=== PATIENT | male | born 1960 | race Caucasian/White ===

== ENCOUNTER → 2020-03-07 07:56 | Outpatient (BNVA) | payer SELFPAY | PROVIDERS: PCP Family Medicine; Visit Provider Physician Assistant Medical ==

== ENCOUNTER → 2021-03-09 14:17 | Outpatient (BNVA) | payer SELFPAY | PROVIDERS: PCP Family Medicine; Visit Provider Physician Assistant | DX: Z02.79 Encounter for issue of other medical certificate (principal) ==

== ENCOUNTER → 2021-05-28 11:22 | Outpatient (BNVA) | payer OTHER, SELFPAY | PROVIDERS: PCP Family Medicine; Visit Provider Internal Medicine | DX: S86.111A Strain of other muscle(s) and tendon(s) of posterior muscle group at lower leg level, right leg, initial encounter (principal); W00.0XXA Fall on same level due to ice and snow, initial encounter | CPT/HCPCS: 99203 ==

== ENCOUNTER → 2021-05-30 10:46 | Outpatient (BNVA) | payer OTHER, SELFPAY | PROVIDERS: PCP Family Medicine; Visit Provider Physician Assistant Medical | DX: S76.311A Strain of muscle, fascia and tendon of the posterior muscle group at thigh level, right thigh, initial encounter (principal); W18.30XA Fall on same level, unspecified, initial encounter | CPT/HCPCS: 99213 ==

== ENCOUNTER → 2021-06-05 13:05 | Outpatient (BNVA) | payer OTHER, SELFPAY | PROVIDERS: PCP Family Medicine; Visit Provider Physician Assistant Medical | DX: S86.112A Strain of other muscle(s) and tendon(s) of posterior muscle group at lower leg level, left leg, initial encounter (principal); S80.12XA Contusion of left lower leg, initial encounter; W18.30XA Fall on same level, unspecified, initial encounter | CPT/HCPCS: 99213 ==

== ENCOUNTER 2021-06-18 18:58 | Outpatient (REF) | payer OTHER, SELFPAY ==
--- NOTE | ~2021-06-18 | MR_ITS ---
EXAMINATION: MRI FEMUR WITHOUT CONTRAST, LEFT CLINICAL INFORMATION: Posterior distal left thigh pain. Left thigh pulling injury following a slip and fall. Pain and weakness. COMPARISON: None TECHNIQUE: Multisequence MR imaging of the left femur was obtained without contrast on a high-field strength scanner. FINDINGS: BONE: No abnormal marrow signal. No stress reaction, fracture, or avascular necrosis. No concerning lytic or blastic osseous lesion. MUSCLES/TENDONS: There is a full-thickness tear of the proximal hamstring tendons with a resultant tendon gap measuring approximately 3.9 cm in craniocaudal dimension. There is fluid within the tendon gap as well as fluid extending distally along the myotendinous junction. There is edema extending distally into the semimembranosus, semitendinosus, and biceps femoris muscles, consistent with associated muscle strains. SOFT TISSUES: No abnormal soft tissue mass. MR/MR femur LT wo con IMPRESSION: Full-thickness tear of the proximal left hamstring tendons with a tendon gap measuring 3.9 cm in craniocaudal dimension. Fluid within the tendon gap as well as edema extending distally along the myotendinous junction. Associated strains of the semimembranosus, semitendinosus, and biceps femoris muscles.
== END 2021-06-18 18:59 | disposition home or self-care (01) ==
LOC: HO.MRI 18:58
PROVIDERS: Visit Provider Internal Medicine
DX: M79.652 Pain in left thigh (principal); S79.922D Unspecified injury of left thigh, subsequent encounter
CPT/HCPCS: 73718

== ENCOUNTER → 2021-06-20 15:46 | Outpatient (BNVA) | payer OTHER, SELFPAY | PROVIDERS: PCP Family Medicine; Visit Provider Physician Assistant Medical | DX: S76.312D Strain of muscle, fascia and tendon of the posterior muscle group at thigh level, left thigh, subsequent encounter (principal); X58.XXXD Exposure to other specified factors, subsequent encounter | CPT/HCPCS: 99213 ==

== ENCOUNTER → 2021-06-25 15:44 | Outpatient (BNVA) | payer OTHER, SELFPAY | PROVIDERS: PCP Family Medicine; Visit Provider Physician Assistant Medical | DX: S86.112D Strain of other muscle(s) and tendon(s) of posterior muscle group at lower leg level, left leg, subsequent encounter (principal); X58.XXXD Exposure to other specified factors, subsequent encounter | CPT/HCPCS: 99213 ==

== ENCOUNTER → 2021-07-03 09:11 | Outpatient (BNVA) | payer OTHER, SELFPAY | PROVIDERS: PCP Family Medicine; Visit Provider Physician Assistant | DX: S76.312A Strain of muscle, fascia and tendon of the posterior muscle group at thigh level, left thigh, initial encounter (principal) | CPT/HCPCS: 99202 ==

== ENCOUNTER 2021-07-10 16:00 | Outpatient (RCR) | payer OTHER, SELFPAY ==
--- NOTE | 2021-06-07 12:56 | MHC.PT.EP ---
[facility] [place] Office [place] Office [place] Office [address] Marcio Chavez [address] [phone] F: [phone] F: [phone] F: [phone] F: [phone] Physical Therapy Plan of Care Date of Evaluation: Date of Surgery: N/A Diagnosis: L hamstring tear Assessment: Pt is a 60yo M who presents to PT with L hamstring pain s/p slipping and falling. He presents to PT with current impairments in pain, bruising, decreased L knee ROM, decreased strength, impaired gait and balance. He is limited functionally by prolonged standing, prolonged ambulation, stair navigation, standing from kneeling, and LE ADLs. His signs and symptoms may be consistent with L hamstring strain. He is a good candidate for skilled PT services in order to address current impairments to facilitate return to PLOF. Frequency and Duration: The patient will be seen 2x/week for 4 weeks Short Term Goals: Pt will be I with HEP to promote self management of symptoms Pt will improve L knee flexion by 5 degrees Hospice Bereavement Coordinator Goals: Pt will tolerate ambulation > 30 min with improved gait mechanics with minimal to no pain Pt will ascend/descend 1 flight of stairs with reciprocal gait pattern with minimal to no pain Pt will demonstrate improvements in functional mobility as evidenced by statistically significant improvement in LEFI outcome measure Treatment Plan: Modalities to reduce pain, spasms and effusion. Manual therapy to restore motion and function. Therapeutic exercise to improve strength and flexibility. Neuromuscular re-education for posture and balance. Therapeutic activities to return to functional activities of daily living. Electronically signed by: Erna Hansen, PT, DPT Please sign and return to therapist. Thank you for your referral.
--- NOTE | 2021-07-10 17:17 | MHC.PT.DC ---
[facility] [place] Office [place] Office [place] Office [address] Marcio Chavez [address] [phone] F: [phone] F: [phone] F: [phone] F: [phone] Physical Therapy Discharge Report Diagnosis: L hamstring tear Date of Surgery: N/A Date of Evaluation: 06/06/21 Date of Discharge: 07/10/21 Treatments to Date: 3 Cancellations to Date: No Shows to Date: Discharge Status: Achieved Goals Improved Function Independent with HEP Patient Elected to Stop Discharge Summary: Felix has attended 2 evaluations and 1 treatment session since June 06 with some hole d/t tearing of L HS noted on MRI. He reports he has not been in pain and is not restricted of his ADLs or function; his LEFI outcome measure is significantly improved from 29% to 73%; DC is recommended today as he reports he is no longer in pain, his condition has improved about 90% without PT interventions and reports he is no longer limited of his functional ability. Felix reports he has been on some work restrictions which he is recommended to continue for the next few weeks as his current level of activity is supportive of his recovery. Pt is in agreement with DC at this time and is recommended to speak with his supervisor [employer] and MD should his symptoms re-occur or worsen. Electronically signed by: Alexi Sullivan PT. Please sign and return to therapist. Thank you for your referral.
== END 2021-07-10 17:17 | disposition home or self-care (01) ==
LOC: HO.PTCHIC 16:00
PROVIDERS: PCP Family Medicine; Visit Provider Physician Assistant Medical
DX: S76.812D Strain of other specified muscles, fascia and tendons at thigh level, left thigh, subsequent encounter (principal)
CPT/HCPCS: 97110; 97162; 97164

== ENCOUNTER → 2021-08-14 15:15 | Outpatient (BNVA) | payer OTHER, SELFPAY | PROVIDERS: PCP Family Medicine; Visit Provider Physician Assistant | DX: S76.312D Strain of muscle, fascia and tendon of the posterior muscle group at thigh level, left thigh, subsequent encounter (principal) | CPT/HCPCS: 99212 ==

== ENCOUNTER → 2022-02-28 15:11 | Outpatient (BNVA) | payer OTHER, SELFPAY | PROVIDERS: PCP Family Medicine; Visit Provider Physician Assistant | DX: Z02.79 Encounter for issue of other medical certificate (principal) ==

== ENCOUNTER → 2023-02-13 14:26 | Outpatient (BNVA) | payer SELFPAY | PROVIDERS: PCP Family Medicine; Visit Provider Physician Assistant Medical | DX: Z02.79 Encounter for issue of other medical certificate (principal) ==

== ENCOUNTER → 2024-01-05 10:20 | Outpatient (BNVA) | payer OTHER, SELFPAY | PROVIDERS: PCP Family Medicine; Visit Provider Physician Assistant Medical | DX: M54.41 Lumbago with sciatica, right side (principal) | CPT/HCPCS: 99203 ==

== ENCOUNTER → 2024-01-08 15:00 | Outpatient (BNVA) | payer OTHER, SELFPAY | PROVIDERS: PCP Family Medicine; Visit Provider Physician Assistant Medical | DX: M54.50 Low back pain, unspecified (principal) | CPT/HCPCS: 99213 ==

== ENCOUNTER → 2024-01-28 14:53 | Outpatient (BNVA) | payer SELFPAY | PROVIDERS: PCP Family Medicine; Visit Provider Physician Assistant Medical | DX: Z02.79 Encounter for issue of other medical certificate (principal) ==

== ENCOUNTER 2024-07-26 09:59 | Emergency (ER) | payer BC, SELFPAY ==
--- NOTE | 2024-07-26 10:14 | ED_ITS ---
HPI - Psych General Chief Complaint: Psychiatric Symptoms Stated Complaint: SEC 12 BY [employer],DEPRESSION PER EMS Time Seen by Provider: 07/26/24 10:13 Source: patient, RN notes reviewed and old records reviewed Mode of arrival: ambulatory Limitations: no limitations History of Present Illness ED Provider: [facility] Narrative: Patient is a 63-year-old male with history of smoking, T2 DM, high cholesterol presenting to the emergency department on a section 12 from [facility] after making suicidal statements. Patient reports that he was overheard by a bystander who called 911. He admits to depression and admits to making suicidal statements but states that he would not actually go through with these thoughts. He states that he has nobody, and is lonely. He denies homicidal ideation, auditory or visual hallucinations. Does not have a therapist in the community, is not on any psychiatric medications. He states that he does not have any firearms in his home. Denies any physical complaints. MD complaint: feels depressed Related Data Home Medications ?Medication ?Instructions ?Recorded ?Confirmed blood sugar diagnostic (OneTouch #10 ea 07/03/21 Ultra Test strips) blood-glucose meter (OneTouch #1 ea 07/03/21 Ultra2 Meter) lancets 30 gauge (OneTouch Delica #100 ea 07/03/21 Lancets) lisinopril 5 mg tablet 5 mg PO DAILY 07/03/21 lovastatin 20 mg tablet 20 mg PO DAILY 07/03/21 metformin 850 mg tablet 850 mg PO BID 07/03/21 Previous Rx's ?Medication ?Instructions ?Recorded cyclobenzaprine 10 mg tablet 10 mg PO BEDTIME PRN muscle spasm 01/05/24 #20 tabs Allergies Allergy/AdvReac Type Severity Reaction Status Date / Time No Known Allergies Allergy Verified 07/26/24 10:40 Review of Systems 2 Review of Systems: As per HPI Yes all other systems are reviewed and are negative Constitutional: Constitutional: Reports as per HPI [facility] Past Medical History Medical History Diabetes High cholesterol Social History Social History Advance Directives: No Advance Directives Information Provided: No Current occupational status: employed 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 Blood pressure elevated. Heart rate normal. Respiratory rate normal. Temperature normal. Oxygen saturation normal. Const: General: cooperative, healthy appearing and no acute distress O rientation/consciousness: oriented to person, oriented to place, oriented to time and patient oriented x3 Limitations: no limitations HEENT: Head: Yes normocephalic and Yes atraumatic Ears: external ears normal General nose exam: Normal external nose present Face and sinus: Yes face symmetric Mouth: oropharynx normal and moist mucous membranes Throat: Yes uvula midline Eyes: Pupils: Equal, round and reactive pupils present Neck: Neck: Yes normal visual inspection and Yes supple Resp: Effort & Inspection: normal respiratory effort and able to speak in complete sentences Auscultation: clear to auscultation bilaterally Cardio: Rate: regular rate Rhythm: regular rhythm Heart sounds: S1 normal heart sound present and S2 normal heart sound present GI: Palpation (GI): Soft to palpation and nontender Auscultation: n ormoactive bowel sounds : General: Yes no CVA tenderness Back/Spine/Pelvis: Back: no CVA tenderness Skin: General skin exam: elasticity normal and turgor normal Neuro: General: oriented to person, oriented to place, oriented to time, patient oriented x3, moves all extremities, no focal motor deficits and CN's II- XI intact bilaterally Cranial nerves: Yes Equal, round and reactive pupils present Cognition (Neuro): normal cognition Extrem: General: Yes full ROM, Yes no pedal edema and Yes no calf tenderness Psych: Appearance: grossly normal Mental Status: mental status grossly normal Affect: normal affect Attitude: cooperative Thought process: N ormal thought process present Thought content: suicidality, no homicidality, no hallucinations and Depressive thoughts present Insight: Good insight present (Psych) Judgement: Good judgement present (Psych) Medical Decision Making Medical Decision Making MDM Narrative: Patient is a 63-year-old male with history of smoking, T2 DM, high cholesterol presenting to the emergency department on a section 12 from [facility] after making suicidal statements. On exam patient is awake, A+Ox3, VS WNL, afebrile, normal neurological exam without focal deficits, physical exam findings as above. Given reported symptoms and physical exam findings, initial differential includes but is not limited to depression, anxiety, suicidal ideation. Labs unremarkable. UA without evidence of infection. Feel patient is stable for CARE team evaluation at this time. Patient placed on physician observation pending CARE eval. Per Dane from CARE team, patient cleared to be discharged home with resources. Differential Diagnosis Differential Diagnoses: The differential diagnosis associated with the presentation includes as per [facility] Admission/Observation Consideration of admission/observation: Escalation of care including admission/observation considered Consult Healthcare Provider Management of the patient was discussed with: Behavioral Health Provider Lab Data [facility] Lab Attestation statement: I reviewed the patient's lab results. as per [facility] 07/26/24 10:52 07/26/24 10:52 Labs: Lab Results 07/26/24 07/26/24 07/26/24 Range/Units 10:52 10:53 14:03 WBC 11.3 H (4.8-10.8) X10*3/uL RBC 4.32 L (4.60-5.80) X10*6/uL Hgb 12.8 L (14.0-18.0) g/dl Hct 37.8 L (42.0-52.0) % MCV 87.5 (80.0-98.0) fL MCH 29.6 (27.0-33.0) pg MCHC 33.9 (31.0-36.0) g/dl RDW 12.9 (11.0-16.0) % Plt Count 336 (160-400) X10*3/uL MPV 8.7 L (9.4-12.4) fL Immature Gran % (Auto) 0.3 (0.0-0.4) % Neut % (Auto) 77.3 H (45-73) % Lymph % (Auto) 14.8 L (20-40) % [place] % (Auto) 6.5 (2-11) % Eos % (Auto) 0.6 (0-4) % Baso % (Auto) 0.5 (0-2) % Lymph # (Auto) 1.7 (1.2-4.9) X10*3/uL [place] # (Auto) 0.7 (0.1-1.2) X10*3/uL Eos # (Auto) 0.1 (0.0-0.4) X10*3/uL Baso # (Auto) 0.1 (0.0-0.2) X10*3/uL Abs Immat Gran (auto) 0.03 (0.00-0.03) X10*3/uL Absolute Neuts (auto) 8.7 H (2.0-8.3) x10*3/uL Absolute Nucleated RBC 0.000 (0.0-0.012) X10*3/uL Nucleated RBC % (auto) 0.0 (0.0-0.2) /100WBC Sodium 133 L (135-145) mmol/L Potassium 4.2 (3.3-5.1) mmol/L Chloride 102 (96-108) mmol/L Carbon Dioxide 20 L (22-29) mmol/L Anion Gap 15 (12-20) BUN 10 (9-16) mg/dL Creatinine 0.64 (0.5-1.4) mg/dL Estim Creat Clear Calc 142.8 Estimated GFR > 60 Random Glucose 136 H (60-115) mg/dL Calcium 9.2 (8.4-10.2) mg/dL Total Bilirubin 0.5 (0.0-1.0) mg/dL AST 20 (5-37) U/L ALT 21 (0-40) U/L Alkaline Phosphatase 58 (39-117) U/L Total Protein 6.8 (6.5-8.0) g/dL Albumin 4.0 (3.5-5.0) g/dL Urine Color Yellow Urine Appearance Clear Urine pH 8.5 (5.0-9.0) Ur Specific Lucien <= 1.005 (1.005-1.025) Urine Protein Negative (Neg-Trace) mg/dL Urine Glucose (UA) Negative (Negative) mg/dL Urine Ketones Negative (Negative) mg/dL Urine Blood Negative (Negative) Urine Nitrite Negative (Negative) Ur Leukocyte Esterase Small (1+) H (Negative) Urine RBC 0-2 (0-2) /HPF Urine WBC 0-5 (0-5) /HPF Ur Squamous Epith Cells 0-2 (0-2) /HPF Urine Bacteria 1+ (None Seen) Hyaline Casts 0-2 (0-2) /LPF Urine Opiates Screen Not Detected (Not Detect) Ur Buprenorphine Scrn Not Detected (Not Detect) ng/mL Ur Oxycodone Screen Not Detected (Not Detect) ng/mL Urine Methadone Screen Not Detected (Not Detect) ng/mL Urine Fentanyl Screen Not Detected (Not Detect) Ur Barbiturates Screen Not Detected (Not Detect) Ur Phencyclidine Scrn Not Detected (Not Detect) Ur Amphetamines Screen Not Detected (Not Detect) U Benzodiazepines Scrn Not Detected (Not Detect) Urine Cocaine Screen Not Detected (Not Detect) U Marijuana (THC) Screen Not Detected (Not Detect) Ethyl Alcohol < 10 mg/dL Influenza Type A (PCR) NEGATIVE (Negative) Influenza Type B (PCR) NEGATIVE (Negative) RSV RNA Qual (PCR) NEGATIVE (Negative) SARS-CoV-2 RNA (RT-PCR) NEGATIVE (Negative) External Record Review External record reviewed: Inpatient record, Office record and Outpatient record Discharge Plan Discharge Clinical Impression: Depression Patient Disposition: Home, Self-Care Instructions: Depression (DC) Additional Instructions: You were seen in our Emergency Department today for treatment of a behavioral health issue. It is important after your visit that you follow up with either your behavioral health provider or a primary care doctor within 7 days.? If you have trouble finding a therapist you can reach out to [place] [phone] The National Suicide and Crisis Lifeline can be reached 7 days a week 24 hours a day.? Call 988 to speak with someone.? Return for any worsening symptoms or concerns such as thoughts of self harm or harm to others. Please call 911 if you feel your mental health is worsening.? Prescriptions: No Action lisinopril 5 mg tablet 5 mg PO DAILY (DME) OneTouch Ultra Test Strip See Rx Instructions .ROUTE .MEDSUPPLY Qty: 10 Rx Instructions: As directed (DME) lancets [OneTouch Delica Lancets] 30 gauge misc See Rx Instructions .ROUTE .MEDSUPPLY Qty: 100 Rx Instructions: As directed lovastatin 20 mg tablet 20 mg PO DAILY metformin 850 mg tablet 850 mg PO BID (DME) blood-glucose meter [OneTouch Ultra2 Meter] Misc See Rx Instructions .ROUTE DIRECTED Qty: 1 Rx Instructions: As directed cyclobenzaprine 10 mg tablet 10 mg PO BEDTIME PRN (Reason: muscle spasm) Qty: 20 0RF Print Language: Czech
[2024-07-26 10:20] VITALS: BP 178/102; PULSE 98; O2SAT 97
[2024-07-26 10:37] VITALS: BP 158/94; PULSE 95; RESP 18; TEMP 36.9; O2SAT 97
[2024-07-26 10:39] VITALS: BP 158/94; PULSE 97; RESP 18; TEMP 36.9; O2SAT 95; BMI 31.0
[2024-07-26 10:56] LABS: MANUAL DIFF FLAG NO
[2024-07-26 11:01] LABS: Basophils Absolute Auto 0.1 X10*3/uL (0.0-0.2); Basophils Percent Auto 0.5 % (0-2); Eosinophils Absolute Auto 0.1 X10*3/uL (0.0-0.4); Eosinophils Percent Auto 0.6 % (0-4); Hematocrit 37.8 % (42.0-52.0); Hemoglobin 12.8 g/dl (14.0-18.0); Imm Gran Abs Auto 0.03 X10*3/uL (0.00-0.03); Imm Gran Pct Auto 0.3 % (0.0-0.4); Lymphocytes Absolute Auto 1.7 X10*3/uL (1.2-4.9); Lymphocytes Percent Auto 14.8 % (20-40); Mean Corpuscular HGB Conc 33.9 g/dl (31.0-36.0); Mean Corpuscular Hemoglobin 29.6 pg (27.0-33.0); Mean Corpuscular Volume 87.5 fL (80.0-98.0); Mean Platelet Volume 8.7 fL (9.4-12.4); Monocytes Absolute Auto 0.7 X10*3/uL (0.1-1.2); Monocytes Percent Auto 6.5 % (2-11); Neutrophils Absolute Auto 8.7 x10*3/uL (2.0-8.3); Neutrophils Percent Auto 77.3 % (45-73); Platelet Count 336 X10*3/uL (160-400); Red Blood Count 4.32 X10*6/uL (4.60-5.80); Red Cell Distribution Width 12.9 % (11.0-16.0); White Blood Count 11.3 X10*3/uL (4.8-10.8)
[2024-07-26 11:35] LABS: Influenza A PCR NEGATIVE (Negative); Influenza B PCR NEGATIVE (Negative); Resp Syncy Virus RNA Qual PCR NEGATIVE (Negative); SARS COV2 PCR INHOUSE NEGATIVE (Negative)
[2024-07-26 12:36] LABS: Alanine Aminotransferase 21 U/L (0-40); Anion Gap 15 (12-20); Aspartate Amino Transferase 20 U/L (5-37); Bilirubin Total 0.5 mg/dL (0.0-1.0); Blood Urea Nitrogen 10 mg/dL (9-16); Calcium 9.2 mg/dL (8.4-10.2); Carbon Dioxide 20 mmol/L (22-29); Chloride 102 mmol/L (96-108); Creatinine Clr Calc Pharmacy 142.8; Estimated Glomerular Filt Rate > 60; Ethanol < 10 mg/dL; Glucose Random 136 mg/dL (60-115); Potassium 4.2 mmol/L (3.3-5.1); Sodium 133 mmol/L (135-145); Total Protein 6.8 g/dL (6.5-8.0)
--- OUTSIDE RECORDS SUMMARY | 2024-07-26 12:55 | XMS_ITS ---
Author Organization [facility] [address] Address [address] [place] [address] Care Team Providers Care Relocation Commissioner Name Role Phone Ryan Rodas M.D Primary Care Provider Unavailabl e Black, Sandra Unavailable [phone] Allergies No Known Allergies REASON FOR VISIT At Risk Footcare, Toe Irritation Medications Medication SIG (Take, Route, Frequency, Duration) Notes Start Date End Date Status Lovastatin 40 MG Orally Not -Taking Ciclopirox Olamine 0.77 % APPLY EXTERNAL LY TWICE A DAY FOR 30 DAYS for 30 Active Clopidogrel Bisulfate 75 MG TAKE 1 TABLET BY MOUTH EVERY DAY Oral for 90 Days Active metFORMIN HCl 850 MG Orally Active Lisinopril 5 MG Orally Acti ve Atorvastatin Calcium 20 MG as directed Orally Active Social History Tobacco Use: Social History Observation Description Date Details (start date - stop date) Current Smoker 06/21/1985 - NA Tobacco use other than smoking: Question Answer Notes Are you an other tobacco user? No Tobacco Control (Standard) Question Answer Notes Tobacco use: Current smoker When did you start smoking? 06/21/1985 How often do you smoke cigarettes? Every day How many cigarettes a day do you smoke? 6-10 How soon after you wake up d o you smoke your first cigarette? 6-30 minutes Are you interested in quitting? Thinking about q uitting Additional Findings: Tobacco user Modera te cigarette smoker (10-19 cigs/day) AUDIT-C (Standard) Question Answer Notes Did you have a drink containing alcohol in the p ast year? No Points 0 Interpretation Negative Vital Signs Height 5ft 11in in 06/21/2024 Weight 225 lbs 06/21/2024 BMI 31.38 kg/m2 06/21/2024 Blood pressure systolic 130 mm Hg 06/22/19 25 Blood pressure diastolic 70 mm Hg 025 Procedures Procedure Date Ordered Date Performed Result Body Sit e 08439-SNUCJUS NAIL, 6 OR MORE 06/21/2024 N/A 91830-KZHW SKIN LESIONS, OVER 4 06/21/2024 N/A Encounters Encounter Location Date Provider Diagnosis [facility] [address] [place] [address] 06/21/2024 Sandra Rocha Type 2 diabetes mellitus with diabetic polyneuropathy E11.42 ; Other hammer toe(s) (acquired), right foot M20.41 ; Tinea unguium B35.1 and Other hammer toe(s) (acquired), left foot M20.42 Assessments Encounter Date Diagnosis (ICD Code) Assessment Notes Treatment Notes Treatment Clinical Notes Section Notes 06/21/2024 Type 2 diabetes mellitus with diabetic polyneuropathy (ICD-10 - E11.42) 06/21/2024 Other hammer toe(s) (acquired), right foot (ICD-10 - M20.41) Patient Educated with: DIABETIC FOOT CARE INSTRUCTIONS. pdf (DIABETIC FOOT CARE INSTRUCTIONS. pdf) 06/21/2024 Tinea unguium (ICD-10 - B35.1) 06/21/2024 Other hammer toe(s) (acquired), left foot (ICD-10 - M20.42) Plan Of Treatment Treatment Notes Assessment Notes Other hammer toe(s) (acquired), right fo ot Patient Educated with: DIABETIC FOOT CARE INSTRUCTIONS.pdf (DIABETIC FOOT CARE INSTRUCTIONS.pdf) Pending Test Test Name Order Date 92588-CRUATVD NAIL, 6 OR MORE 06/21/2024 44568-VNTY SKIN LESIONS, OVER 4 06/22/19 25 Next Appt Details Follow Up: prn, Reason: Provider Name:Sandra Rocha , 09/27/2024 03:45:00 PM, [address] [place] [address], [phone], Procedure Notes * Category Sub-Category Detail Notes Debride Nail 6-10 Nail debridement Due to the cl inical pathology outlined in the exam findings, performance of this nail treatment is medically necessary as its management by an unskilled/untrained nonprofessional would put this patients foot and overall health at risk. Therefore, debridement to affected nail(s), as described in exam ( TA, T1, T2, T3, T4, T5, T6, T7, T8, T9, ), was performed exclusively by the physician of record to reduce/remove overall nail length, girth, thickness, subungual debris, and necrotic tissue, by manual and/or electrical means through the use of a nail nipper and/or dremel-type tap grinder, to a more viable healthy nail plate or bed tissue 6-10 nails in total. Silver nitrate was used for any petechial bleeding as necessary. Definitive antifungal treatment options, both pharmaceutical and surgical, have been reviewed and discussed with the patient. The patient solely prefers the use of intermittent/as needed professional debridement services for their nail condition and understands the need for additional periodic treatments to maintain effectiveness in symptomatic relief - 16034 Keratoma Treatment Parring or Cutting o f Benign Hyperkeratotic Lesion(s) (-57) More than 4 Lesions - Due to the at risk nature of the patients medical condition as documented in the exam findings, performance of this keratoderma treatment is medically necessary as its management by an unskilled/untrained nonprofessional would put this patients foot and overall health at risk. Therefore, the benign hyperkeratotic lesions, ( 6 ) in total, locations as stated and described in the exam ( ,IPJ,TA,T5,SUB MTH (s),1,B/L,SUB MTH (s),5,B/L ), were pared, and/or cut utilizing a sterile 15 blade, tissue nippers, and/or power dremel instrumentation by the physician of record - [id number] Progress Notes * Felix BEANDOB:12/1960 (63 yo M)Acc No.[id number]:06/21/2024 Progress Note Patient:?KIRANEANTobishabana jessica Provider:Aileen Rocha DPM :1960???Age:63 Y???Sex:Male Baljinder e:06/21/2024 Address:[address] [place], [place] [id number] Pcp:Ryan Rodas M.D Subjective: * Chief Complaints: * ???At Risk FootcareToe Irrit ation * HPI: ???At Risk footcare:?Pt States Last PCP Visit:?Date?07/09/2023 ???Toe pain:?Location:?B/L feet.?Duration:?several years.?Course:?worse.?Aggravated by:?shoes, any pressure.?Treatments:?change in shoes.? * ROS:?General/Constitutional:?Nausea?denies.?Vomiting?denies.?Hunger Thirst?denies.?Loss appetite?denies.?Chills?denies.?Fatigue?denies.?Fever?denies.?Night Sweats?denies.?Unexplained weight loss?denies.?Unexplained weight gain?denies.?HEENTM:?Dentures?admits.?Dizziness?denies.?Glasses/contacts?admits.?Retinopathy?de nies.?Blurred/double vision?denies.?TMJ?denies.?Discharge/drainage?denies.?Implants?denies.?Sore throat?denies.?Dental implants?denies.?Hard of hearing ?denies.?Difficulty chewing/swallowing/speaking?denies.?Nose bleeds?denies.?Sore mouth?denies.?Respiratory:?On Oxygen?denies.?Pneumonia/pleurisy?denies.?Bronchitis?denies.?Emphysema?denies.?C oughing?denies.?Cough blood?denies.?Shortness of breath?denies.?Wheezing?denies.?Cardiovascular:?Pacemaker?denies.?MVP?denies.?WPW?denies.?CHF?denies.?Heart attack?denies.?Septal defect?denies.?Rapid beat?denies.?Chest pain ?denies.?Atrial Fib.?denies.?Murmur/Palpitations?denies.?Gastrointestinal:?Hemorrhoids?denies.?Stomach/Abdominal pain?denies.?Dark blood stool?denies.?Irritable bowel ?denies.?Constipation?denies.?Diarrhea?denies.?Hematology:?Swelling?denies.?Clots?denies.?Varicose Veins?denies.?Bruising?denies.?Bleeding problem?denies.?Genitourinary:?Blood urine?denies.?Frequent/Painfu/urination/bladder control?denies.?Kidney stones?denies.?Infection (UTI)?denies.?Nephropathy?denies.?sex trans dis (STD)?denies.?Prostate?denies.?Musculoskeletal:?Hammertoes?admits.?Bunions?admits.?Back Pain?denies.?Muscle Cramps/ Resting?denies.?Muscle cramps / walking?denies.?Generalized aches and pains?admits.?Weakness?denies.?Integ.:?Valles?denies.?Scars?denies.?Corns/calluses?admits.?Ingrown nails?denies.?Painful nails?denies.?Open Sores?denies.?Rashes?denies.?Neurologic:?Difficulty sleeping?denies.?Brain disorder?denies.?Numbness?denies.?Balance trouble?denies.?Confusion?denies.?Fainting/blackouts?denies.?Tingling?denies.?Tr emors?denies.? * Medical History:? * Surgical History:?[facility] age 8[id number] - Right leg 06/13 * Hospitalization/Major Diagno stic Procedure:?Denies Past Hospitalization * Family History:?Mother: dece ased, foot problems.?Father: , stroke.? * Social History:?Tobacco Use:?Tobacco use other than smoking?Are you an other tobacco user??No ?Tobacco Control (Standard)?Tobacco use:?Current smoker ?When did you start smoking??06/21/1985 ?How often do you smoke cigarettes??Every day ?How many cigarettes a day do you smoke??6-10 ?How soon after you wake up do you smoke your first cigarette??6-30 minutes ?Are you interested in quitting??Thinking about quitting ?Additional Findings: Tobacco user?Moderate cigarette smoker (10-19 cigs/day) ???Drugs/Alcohol:?Drugs?Have you used drugs other than those for medical reasons in the past 12 months??No ???Miscellaneous:?Caffeine: yes, frequency: 6 cups per day. ?Children: no. ?Exercise: yes, walking. ?Marital status: single. 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 ???Drug/Alcohol:?AUDIT-C (Standard)?Did you have a drink containing alcohol in the past year??No ?Points?0 ?Interpretation?Negative * Medications:?TakingAtorvasta tin Calcium 20 MG Tablet as directed Orally metFORMIN HCl 850 MG Tablet Orally Lisinopril 5 MG Tablet Orally Ciclopirox Olamine 0.77 % Cream APPLY EXTERNALLY TWICE A DAY FOR 30 DAYS Clopidogrel Bisulfate 75 MG Tablet TAKE 1 TABLET BY MOUTH EVERY DAY Oral Taking Atorvastatin Calcium 20 MG Tablet as directed Orally Taking metFORMIN HCl 850 MG Tablet Orally Taking Lisinopril 5 MG Tablet Orally Taking Ciclopirox Olamine 0.77 % Cream APPLY EXTERNALLY TWICE A DAY FOR 30 DAYS Taking Clopidogrel Bisulfate 75 MG Tablet TAKE 1 TABLET BY MOUTH EVERY DAY Oral Not-Taking/PRNLovastatin 40 MG Tablet Orally Medication List reviewed and reconciled with the patientNot-Taking/PRN Lovastatin 40 MG Tablet Orally Medication List reviewed and reconciled with the patient * Allergies:?N.K.D.A.yes[Aller gies Verified] Objective: * Vitals:?Ht:5ft 11in, Wt:225, BMI:31.38, Shoe size:9.5-10, BP:130/70mm Hg, BS:95, Ht-cm: 180.34 cm, Wt-k.06 kg. * ???Past Orders: ???Lab:HEMOGLOBIN A1C (GLYCO HEMOGLOBIN) (Order Date - 02/23/2024) (Collection Date & Time - 06/21/2024 03:56 PM) ? Value Reference Range ?HEMOGLOBIN A1C % (HH) 5.9 * Examination: ???Ophthalmology Referral: ?DIABETES EYE EXAM?Diabetic Retinopathy Screening:?No ?Findings of Diabetic Eye Exam:?no retinopathy?General Examination: ?GENERAL APPEARANCE:?Reveals a pleasant, alert, well nourished, well- developed, well hydrated individual, who demonstrates proper attention to hygiene/body habitus, and is in no acute distress, Pt serves as own historian for office visit today.?ORIENTED:?person, place, and time.?FOOT EXAM:?Lower Extremity Neurological Exam performed:?Yes Date ?Visual exam of foot performed:?Yes ?Date?06/21/2024 ?Sensory testing performed:?sensations diminished ?Sensory and motor testing performed:?sensations diminished ?Pedal pulse taking performed:?2+ ?Footwear Evaluation?Footwear Evaluation performed:?Yes?Neurological: ?SENSORY:?exam demonstrates.reduced vibration lower extremity,5.07 monofilament test performed at plantar aspects of 5 varied sites per foot shows sensation,reduced,at Forefoot,B/L,Pt relates,anesthesia,burning.?Nails: ?NAILS are:?Elongated, overgrown, dystrophic, lytic, greater than 3mm thick, discolored and friable with crumbly malodorous subungual debris,with dull to no pain on palpation due to neuropathy, TA, T1, T2, T3, T4, T5, T6, T7, T8, T9.?Dermatologic: ?SKIN FINDINGS:?Skin exam reveals keratotic lesion(s) located at,IPJ,TA,T5,SUB MTH (s),1,B/L,SUB MTH (s),5,B/L ,?.?Orthopedic: ?DIGITAL DEFORMITIES:?Digital contracture, PIPJ, 2-5 B/L, incompl-reducible to push-up test, no over, nor underlapping,?there is?evidence of shoe producing skin irritation.?FOOTWEAR:?worn, non-supportive, shoe gear properties exacerbate patient's foot/toe deformity.?Vascular: ?DP PULSES (B):?2/4, B/L.?PT PULSES (B):?2/4, B/L.?CAPILLARY FILL TIME:?immediate, all digits, B/L.?TROPHIC CONDITION-TEXTURE/ELASTICITY/TURGOR/HAIR GROWTH (B):?normal, B/L.? Assessment: * Assessment: 1.?Other hammer toe(s) (acqu ired), right foot - M20.41 (Primary)???Specify :Chronic problem, Worse?2.?Type 2 diabetes mellitus with diabetic polyneuropathy - E11.42???3.?Tinea unguium - B35.1???4.?Other hammer toe(s) (acquired), left foot - M20.42???Specify :Chronic problem, Worse? Plan: * Treatment: 2.?Type 2 diabetes mellitus with diabetic polyneuropathy?Procedure: 08492-FSQC SKIN LESIONS, OVER 4 3.?Tinea unguium?Procedure: 09373-JNHLUAN NAIL, 6 OR MORE * Procedures:?Debride Nail 6-10:?Nail debridement?Due to the clinical pathology outlined in the exam findings, performance of this nail treatment is medically necessary as its management by an unskilled/untrained nonprofessional would put this patients foot and overall health at risk. Therefore, debridement to affected nail(s), as described in exam ( TA, T1, T2, T3, T4, T5, T6, T7, T8, T9, ), was performed exclusively by the physician of record to reduce/remove overall nail length, girth, thickness, subungual debris, and necrotic tissue, by manual and/or electrical means through the use of a nail nipper and/or dremel-type tap grinder, to a more viable healthy nail plate or bed tissue 6- 10 nails in total. Silver nitrate was used for any petechial bleeding as necessary. Definitive antifungal treatment options, both pharmaceutical and surgical, have been reviewed and discussed with the patient. The patient solely prefers the use of intermittent/as needed professional debridement services for their nail condition and understands the need for additional periodic treatments to maintain effectiveness in symptomatic relief - 44667.?Keratoma Treatment:?Parring or Cutting of Benign Hyperkeratotic Lesion(s)?(-57) More than 4 Lesions - Due to the at risk nature of the patients medical condition as documented in the exam findings, performance of this keratoderma treatment is medically necessary as its management by an unskilled/untrained nonprofessional would put this patients foot and overall health at risk. Therefore, the benign hyperkeratotic lesions, ( 6 ) in total, locations as stated and described in the exam ( ,IPJ,TA,T5,SUB MTH (s),1,B/L,SUB MTH (s),5,B/L ), were pared, and/or cut utilizing a sterile 15 blade, tissue nippers, and/or power dremel instrumentation by the physician of record - 13840.? * Procedure Codes:?50996 DEBRI DE NAIL, 6 OR MORE, Modifiers: XS 02569 TRIM SKIN LESIONS, OVER 4, Modifiers: XS * Preventive Medicine:? ??Counseling:?Tobacco use:?Type of Tobacco Use Cessation Counseling provided?Smoking cessation education ?Patient counseled on the dangers of smoking and urged to quit:?06/21/2024 ?Discussion:?-13: Office or other outpatient visit for the evaluation and management of an established patient, which required a medically appropriate history and/or examination and LOW level of DECISION MAKING for: 1 STABLE ACUTE UNCOMPLICATED PROBLEM, 2 OR MORE MINOR PROBLEMS, OR 1 STABLE CHRONIC PROBLEM, THAT POSE(S) A LOW RISK FOR MORBIDITY/MORTALITY. The visit on the day of the encounter encompassed interpreting the data and educating the patient as to the nature of their condition, treatment options available according to their individual PMH, meds, allergies, and overall health/living conditions, as well as any potential risks or complications that may occur from a failure to adhere to, and participate in, the recommended course of therapy. The discussion included a complete verbal, and/or written explanation of the examination results, any x-rays taken, the proposed diagnosis, and outline of the treatment plan. A schedule for future care needs was also explained. The patient verbalized an understanding of the instructions at this time and agreed to be an active participant in their treatment. If the patient should think of any questions or concerns after the visit, I have encouraged the patient to call the office.?Digital Surgery:?We elected to try conservative treatment at the present time.?Digital Treatment:?HT- I explained to the patient the possible etiologies of Hammertoes, including genetics/foot type/shoegear/activity level/exercise routine and the risks/benefits of all the different treatment options for their pain including: No treatment at all, Rest, Ice, New/supportive/wider/deeper Shoe gear, Digital Padding/Strapping/Taping/Bracing/Gel protective sleeves, Foot/Ankle AFO Bracing, Stretching exercises, Deep Tissue Massage, Arch support/shoe inserts with splay metatarsal padding, and Custom orthoses. I insisted that any digital devices be removed daily and not worn overnight for safety. The patient is to carefully examine the toes daily for any skin irritation while using any splinting or padding device. The advantages and disadvantages of each option were discussed and the patients questions re: shoe gear, padding, custom vs prefabricated inserts, activity level, and consistency in home treatment regimens for optimal success were answered to their verbally confirmed satisfaction, Recomm, rest, ice, proper shoegear, padding, orthotics, anti-inflammatories or tylenol as tolerated, topical analgesics, cortisone injections.?Shoe Gear Counseling:?SHOE Rx - The patient was counseled in great detail on their muscoloskeletal foot and toe deformities which coincided with the dermatological presentations visualized on exam. We discussed how their deformities put the integrity of their feet at risk for potential pedal complications which makes the accomidative diabetic shoes and cutomizable inserts medically necessary. We discussed the different shoe and insert treatment types and options, as well as the important advantages for adhering to regularly wearing these accomidative devices daily. The patient was made aware of the fact that a failure to abide by these recommedations may be deleterious to their foot health as they are able to prevent many pedal complications such as skin irritation, skin ulceration, infection, and even loss of toe/foot/leg/or life. Time was also spent with the patient dispensing and discussing proper diabetic footcare techniques including daily skin moisturization, daily foot inspection for any interruption in skin integrity including open lesions, or sign of infection such as redness/malodor/drainage/swelling. Also discussed and recommended were procedures regarding daily shoe inspection for the presence of internal foreign bodies as well as any visualized irregular shoe or insert wear. Patient questions re: shoes, inserts, and self foot inspections were answered to their satisfaction as the patient verbally confirmed a full understanding of the above information., Patient DEFERS recommended Extra Depth Orthopedic pressure-accommodative shoes against medical advice.? ??Screening/Special Tests:?Fall Risk?Screening:?No falls in the past year ?FALLS: Screening for Future Fall Risk?Have you had any falls with injury in the past year??No * Follow Up:?prn * Images: * Sign off status: Completed true * Provider:?Sandra Rocha DPM Date:?2024 Generated for Jermani delfin/Kasey/eTransmitting on:?07/26/2024 12:55 PM EDT History and Physical Notes * HPI (History of Present Illness) Category Sub-Category Detail Notes Category Not es Toe pain Location: B/L feet Duration: several years Course: worse Aggravated by: shoes, any pressure Treatments: change in shoes At Risk footcare Pt States Last PCP Visit: Date: Examination Category Sub-Category Detail Notes Category Not es Neurological SENSORY: exam demonstrate s.reduced vibration lower extremity,5.07 monofilament test performed at plantar aspects of 5 varied sites per foot shows sensation,reduced,at Forefoot,B/L,Pt relates,anesthesia,burning Dermatologic SKIN FINDINGS: Skin exam reveal s keratotic lesion(s) located at,IPJ,TA,T5,SUB MTH (s),1,B/L,SUB MTH (s),5,B/L , Orthopedic FOOTWEAR EVALUATION: worn, non-s upportive, shoe gear properties exacerbate patient's foot/toe deformity DIGITAL DEFORMITIES: Digital contracture , PIPJ, 2-5 B/L, incompl-reducible to push-up test, no over, nor underlapping, there is evidence of shoe producing skin irritation General Examination GENERAL APPEARANCE: Reveals a pleasant, alert, well nourished, well-developed, well hydrated individual, who demonstrates proper attention to hygiene/body habitus, and is in no acute distress, Pt serves as own historian for office visit today FOOT EXAM: Lower Extremity Neurological Exa m performed:: Yes Date Visual exam of foot performed:: Yes Date: 06/21/2024 Sensory testing performed:: sensations d iminished Sensory and motor testing performed:: se nsations diminished Pedal pulse taking performed:: 2+ ORIENTED: person, place, and t jamaal Footwear Evaluation Footwear Evaluation performe d:: Yes Ophthalmology Referral DIABETES EYE EXAM Diabetic Retinopa thy Screening:: No Findings of Diabetic Eye Exam:: no retin opathy Vascular DP PULSES (B): 2/4, B/L PT PULSES (B): 2/4, B/L CAPILLARY FILL TIME: immediate, all digi ts, B/L TROPHIC CONDITION-TEXTURE/EL ASTICITY/TURGOR/HAIR GROWTH (B): normal, B/L Nails NAILS are: Elongated, overg rown, dystrophic, lytic, greater than 3mm thick, discolored and friable with crumbly malodorous subungual debris,with dull to no pain on palpation due to neuropathy, TA, T1, T2, T3, T4, T5, T6, T7, T8, T9
--- OUTSIDE RECORDS SUMMARY | 2024-07-26 12:55 | XMS_ITS ---
Author Organization [facility] Address [address] [place] [phone] Care Team Providers Care Coding Coordinator Name Role Phone Ryan Rodas M.D Primary Care Provider Sandra Huffman [phone] Encounters Encounter Location Date Provider Diagnosis [address] [address] 06/14/2024 Sandra Rocha Plan Of Treatment Next Appt Details Provider Name:Sandra Rocha , 09/27/2024 03:45:00 PM, [address] [place] [address], [phone], Progress Notes * Felix BEANDOB:12/1960 (63 yo M)Acc No.[id number]:06/14/2024 Progress Note Patient:?eC BEAN Provider:?Sandra Rocha DPM :1960???Age:63 Y???Sex:Male Baljinder e:06/14/2024 Address:[address] [place] [phone] Pcp:Ryan Rodas M.D Subjective: * Chief Complaints: * ??? * Medical History:? Objective: * Vitals:? Assessment: Plan: * Treatment: * Images: * The named appointment provid er may or may not be the originator of this progress note, and it is not deemed complete until electronically signed by the appointment provider. Sign off status: Pending * Provider:Aileen Rocha DPM Date:?2024 Generated for Isai lenz/Kasey/Preethi on:?07/26/2024 12:54 PM EDT
--- OUTSIDE RECORDS SUMMARY | 2024-07-26 12:55 | XMS_ITS | Patient Health Record ---
Author Organization [facility] Address [address] [place] [address] Care Team Providers Care Wellness Trainer Name Role Phone Ryan Rodas M.D Primary Care Provider Sandra Huffman Unavailable [phone] Allergies No Known Allergies Results Component Value Reference Range Notes HEMOGLOBIN A1C (GLYCOHEMOGLO BIN) Reviewed date:06/21/2024 03:57:43 PM Interpretation: Performing Lab: Notes/Report: HEMOGLOBIN A1C % (HH) 5.9 Reason For Referral Diagnosis 1 Type 2 diabetes kiara itus with diabetic polyneuropathy (E11.42) Diagnosis 2 Other hammer toe(s) (acquired), right foot (M20.41) Diagnosis 3 Other hammer toe(s) (acquired), left foot (M20.42) Diagnosis 4 Arthritis of joint o f lesser toe, left (M19.072) Diagnosis 5 Hallux valgus (acqui red), left foot (M20.12) Diagnosis 6 Tinea unguium (B35.1 ) Diagnosis 7 Pain in right toe(s) (M79.674) Diagnosis 8 Tinea pedis (B35.3) Referring Provider First Name Ryan Referring Provider Last Name Adrianna [facility] Jori Referred Provider Sandra Rocha Referred Address [address] [facility],[place], [place],[address], Referred Provider Specialty Podiatry Referral Priority Routine Medications Medication SIG (Take, Route, Frequency, Duration) [...] Calcium 20 MG as directed Orally Active Immunizations Vaccine Route Administration Date Status Comme nts Influenza Unknown 01/13/2019 Administered Influenza Unknown 12/20/2021 Administered Influenza Unknown 12/20/2022 Administered Social History Tobacco Use: Social History Observation [...] ast year? No Points 0 Interpretation Negative Problems Problem Type SNOMED Code ICD Code Onset Dates Problem Status W/U Status Risk Notes Problem Acquired hammer toe of right foot (7650263916560187 ) Other hammer toe(s) (acquired), right foot (M20.41) Active confirmed Problem Acquired left hallux valgus (432186898430095) Hallux valgus (acquired), left foot (M20.12) Active confirmed Problem Acquired hammer toe of left foot (4443438079978737 ) Other hammer toe(s) (acquired), left foot (M20.42) Active confirmed Problem Polyneuropathy due to type 2 diabetes mellitus (403037411) Type 2 diabetes mellitus with diabetic polyneuropathy (E11.42) Active confirmed Problem Localized, primary osteoarthritis of the ankle and/or foot (077317362) Arthritis of joint of lesser toe, left (M19.072) Active confirmed Vital Signs Blood pressure diastolic 70 mm Hg 06/21/2024 Height 5ft 11in in 06/21/2024 Blood pressure systolic 130 mm Hg 06/21/2024 Weight 225 lbs 06/21/2024 BMI 31.38 kg/m2 06/21/2024 Procedures Procedure Date Ordered Date Performed Result Body Sit e 96711-LLFOSPA NAIL, 6 OR MORE 07/28/2023 N/A 41829-Menwhiys Plate 07/28/2023 N/A 17700-WGEA SKIN LESIONS, OVER 4 07/28/2023 N/A 50628-GYPONPD NAIL, 6 OR MORE 11/17/2023 N/A 77605-OLDY SKIN LESIONS, OVER 4 11/17/2023 N/A 38450-FXFMVCT NAIL, 6 OR MORE 03/01/2024 N/A 43348-IMPH SKIN LESIONS, OVER 4 03/01/2024 N/A 97826-YHXQTHN NAIL, 6 OR MORE 06/21/2024 N/A 68593-OEZV SKIN LESIONS, OVER 4 06/21/2024 N/A Encounters Encounter Location Date Provider Diagnosis [address] [address] 07/28/2023 Sandra Black Tinea unguium B35.1 ; Type 2 diabetes mellitus with diabetic polyneuropathy E11.42 and Ingrowing nail L60.[address] [address] 11/17/2023 Sandra Black Type 2 diabetes mellitus with diabetic polyneuropathy E11.42 ; Metatarsalgia, left foot M77.42 ; Tinea unguium B35.1 ; Pain in left foot M79.672 ; Pain in left ankle and joints of left foot M25.572 and Bursitis of intermetatarsal bursa of left foot M77.[address] [address] 03/01/2024 Sandra Black Type 2 diabetes mellitus with diabetic polyneuropathy E11.42 ; Metatarsalgia, left foot M77.42 ; Tinea unguium B35.1 ; Pain in left foot M79.672 ; Closed dislocation of metatarsal joint of left foot, initial encounter S93.335A ; Pain in left ankle and joints of left foot M25.572 and Bursitis of intermetatarsal bursa of left foot M77.[address] [place] [address] 06/21/2024 Sandra Rocha Type 2 diabetes mellitus with diabetic polyneuropathy E11.42 ; Other hammer toe(s) (acquired), right foot M20.41 ; Tinea unguium B35.1 and Other hammer toe(s) (acquired), left foot M20.42 [facility] [address] [address] 03/01/2024 Sandra Aj [facility] [place] [address] [facility] [address] [place] [address] 03/03/2024 [facility] Aj [facility] [address] [address] 03/25/2024 Sandra Aj [facility] [address] [address] 03/26/2024 Sandra Rocha Assessments Encounter Date Diagnosis (ICD Code) Assessment Notes Treatment Notes Treatment Clinical Notes Section Notes 07/28/2023 Tinea unguium (ICD-10 - B35.1) 07/28/2023 Type 2 diabetes mellitus with diabetic polyneuropathy (ICD-10 - E11.42) 11/17/2023 Metatarsalgia, left foot (ICD-10 - M77.42) 11/17/2023 Type 2 diabetes mellitus with diabetic polyneuropathy (ICD-10 - E11.42) 03/01/2024 Type 2 diabetes mellitus with diabetic polyneuropathy (ICD-10 - E11.42) 06/21/2024 Other hammer toe(s) (acquired), right foot (ICD-10 - M20.41) Patient Educated with: DIABETIC FOOT CARE INSTRUCTIONS. pdf (DIABETIC FOOT CARE INSTRUCTIONS. pdf) 06/21/2024 Type 2 diabetes mellitus with diabetic polyneuropathy (ICD-10 - E11.42) 06/21/2024 Tinea unguium (ICD-10 - B35.1) 03/01/2024 Tinea unguium (ICD-10 - B35.1) 03/01/2024 Metatarsalgia, left foot (ICD-10 - M77.42) 11/17/2023 Tinea unguium (ICD-10 - B35.1) 07/28/2023 Ingrowing nail (ICD-10 - L60.0) 06/21/2024 Other hammer toe(s) (acquired), left foot (ICD-10 - M20.42) 11/17/2023 Pain in left foot (ICD-10 - M79.672) 03/01/2024 Pain in left foot (ICD-10 - M79.672) 03/01/2024 Closed dislocation of metatarsal joint of left foot, initial encounter (ICD-10 - S93.335A) 11/17/2023 Pain in left ankle and joints of left foot (ICD-10 - M25.572) 03/01/2024 Pain in left ankle and joints of left foot (ICD-10 - M25.572) 11/17/2023 Bursitis of intermetatarsal bursa of left foot (ICD-10 - M77.52) 03/01/2024 Bursitis of intermetatarsal bursa of left foot (ICD-10 - M77.52) Plan Of Treatment Pending Test Test Name Order Date 29855-PRQAWNM NAIL, 6 OR MORE 11/30/2018 69344-GTTSFAD NAIL, 6 OR MORE 04/29/2019 06360-YHKKKMB NAIL, 6 OR MORE 08/09/2019 09621-HQMSIDR NAIL, 6 OR MORE 11/15/2019 20839-KJKLVRB NAIL, 6 OR MORE 02/14/2020 72284-KWIFDMW NAIL, 6 OR MORE 01/06/2023 95119-AWGMVTO NAIL, 6 OR MORE 04/28/2023 22854-UVDALUY NAIL, 6 OR MORE 07/28/2023 28929-ZHDQGBX NAIL, 6 OR MORE 11/17/2023 06190-XNMVBXX NAIL, 6 OR MORE 03/01/2024 37439-RKMUQIE NAIL, 6 OR MORE 06/21/2024 75491-Kstnqxum Plate 04/29/2019 81476-Eyjfocnv Plate 07/28/2023 98851-EMTL SKIN LESIONS, OVER 4 07/28/19 24 36702-WSFN SKIN LESIONS, OVER 4 04/28/19 24 44209-FNZE SKIN LESIONS, OVER 4 01/07/20 23 71463-LNNG SKIN LESIONS, OVER 4 02/14/20 20 05678-HWZR SKIN LESIONS, OVER 4 11/15/19 20 90234-ZBXD SKIN LESIONS, OVER 4 08/09/19 20 16070-LPOA SKIN LESIONS, OVER 4 12/01/19 19 16735-HBCY SKIN LESIONS, OVER 4 04/29/19 20 65147-SCIM SKIN LESIONS, OVER 4 06/22/19 25 38776-WRAM SKIN LESIONS, OVER 4 03/01/20 24 74331-UTQD SKIN LESIONS, OVER 4 11/17/19 24 Next Appt Details Provider Name:Sandra Rocha , 09/27/2024 03:45:00 PM, [address] [place], [address], Insurance Providers Payer Name Payer Address Payer Phone Subscriber Number Group Number Insured Name Patient Relationship to Insured Coverage Start Date Coverage End Date [facility] [address] [place] [address] [id number] Self - patient is the insured Medical (General) History Medical History History ICD Code type II diabetes Mumps HTN CAD Surgical History Surgery Date(Month/Year) hernia age 8 lazy eye age13 Stent - Right leg 06/13
--- OUTSIDE RECORDS SUMMARY | 2024-07-26 12:56 | XMS_ITS ---
Author Organization [facility] Address [address] [place] [address] Care Team Providers Care Cleaning Matron Name Role Phone Ryan Rodas M.D Primary Care Provider UnavailSandra De Jesus [phone] REASON FOR VISIT Referral Needed Encounters Encounter Location Date Provider Diagnosis [address] [address] 03/26/2024 Sandra Rocha Plan Of Treatment Next Appt Details Provider Name:Sandra Rocha , 09/27/2024 03:45:00 PM, [address] [place] [address], [phone], Progress Notes * Felix BEANDOB:12/1960 (63 yo M)Acc No.[id number]:03/26/2024 Patient:?Ce BEAN :1960???Age:63 Y???Sex:Male Address:[address] [place] [address], [address] * true * Date:? Generated for Printi ng/Famarissag/eTransmitting on:?07/26/2024 12:55 PM EDT
[2024-07-26 13:50] LABS: Alkaline Phosphatase 58 U/L (39-117)
[2024-07-26 14:10] LABS: Appearance Urine Clear; Color Urine Yellow; Glucose Urine UA Negative (Negative); Leukocyte Esterase Urine Small (1+) (Negative); Nitrite Urine Negative (Negative); PH 8.5 (5.0-9.0); Specific Gravity - Urine <= 1.005 (1.005-1.025); UMIC TRIGGER UACC YES; Urine Blood Negative (Negative); Urine Ketones Negative (Negative); Urine Protein Negative (Neg-Trace)
[2024-07-26 14:22] LABS: Amphetamine Screen Urine Not Detected (Not Detect); Bacteria Urine 1+ (None Seen); Barbiturates, Urine Not Detected (Not Detect); Benzodiazepines Screen Urine Not Detected (Not Detect); Buprenorphine Scr Not Detected (Not Detect); Cannabinoid Screen Urine Not Detected (Not Detect); Cocaine Screen Urine Not Detected (Not Detect); Fentanyl, urine Not Detected (Not Detect); Hyaline Casts Urine 0-2 /LPF (0-2); Methadone Screen, Urine Not Detected (Not Detect); Opiate Screen Urine Not Detected (Not Detect); Oxycodone Screen Urine Not Detected (Not Detect); Phencyclidine Screen Urine Not Detected (Not Detect); RBC Urine 0-2 /HPF (0-2); Squamous Epithelial Cell Urine 0-2 /HPF (0-2); UACC Culture Trigger YES; WBC Urine 0-5 /HPF (0-5)
[2024-07-26 15:17] VITALS: BP 121/78; PULSE 78; RESP 16; TEMP 36.7; O2SAT 99
[2024-07-26 15:31] VITALS: BP 121/78; PULSE 78; RESP 16; TEMP 36.7; O2SAT 99
--- NOTE | 2024-07-26 16:53 | MHC.CARE ---
RAD Team completed an [facility] referral for this pt. Will follow up tomorrow
== END 2024-07-26 15:55 | disposition home or self-care (01) ==
PROVIDERS: Registered Nurse Emergency; Emergency Provider Emergency Medicine; PCP Family Medicine
DX: R45.851 Suicidal ideations (principal); N39.0 Urinary tract infection, site not specified; F33.1 Major depressive disorder, recurrent, moderate; Z03.818 Encounter for observation for suspected exposure to other biological agents ruled out; Z79.899 Other long term (current) drug therapy; Z87.891 Personal history of nicotine dependence; Z51.81 Encounter for therapeutic drug level monitoring
CPT/HCPCS: 0241U; 80053; 80307; 81001; 85025; 87086; 87088; 87186; 99284; 99285; S9485

== ENCOUNTER → 2025-01-04 14:53 | Outpatient (BNVA) | payer SELFPAY | PROVIDERS: Visit Provider Registered Nurse | DX: Z02.79 Encounter for issue of other medical certificate (principal) ==